=== PATIENT | male | born 1985 | race Caucasian/White ===

== ENCOUNTER 2021-05-16 16:37 | Observation (INO) ==
--- NOTE | 2021-05-16 17:29 | DR.GENAD ---
HPI Time Seen Time Seen by Provider: 05/16/21 17:20 PCP Primary Care Physician: [email or web address] Complaint/Symptoms Chief Complaint:: PT C/O A FEW WEEKS WORTH OF SORES INTO LEFT LEG AND FOOT. PT IS NOTED TO HAVE SORE ON TOP OF THE LEFT FOOT JUST BELOW 5TH DIGIT AND JUST ABOVE THE FOOT ON THE FRONT OF THE LEFT LEG AND ON THE LEFT KNEE. AREAS ARE NOTED TO BE VERY RED AND LEFT FOOT IS SWOLLEN.PT C/O PAIN INTO THESE SORES. COVID-19 Coronavirus risk:travel/contact w/high risk person: No Has patient experienced Coronavirus symptoms: No Source History Provided: Patient Mode of Arrival Mode of Arrival: Ambulatory Timing Onset of Chief Complaint: 05/16/21 PMH PMH Past Medical History: No Past Surgical History: Yes Surgical History: Ortho Surgery Family History History of Family Medical Conditions: Yes Family Medical History: Diabetes Mellitus and Coronary Artery Disease Social History Does patient currently use any type of tobacco product: Yes Have you used tobacco products in the last 12 months: No Type of Tobacco Use: Cigarettes Does any household member use tobacco: No Alcohol Use: None Do you use any recreational Drugs:: No Lives With: Family Travel Risk Coronavirus risk:travel/contact w/high risk person: No Has patient experienced Coronavirus symptoms: No Infectious screening In the last 2 months have you had wt loss of >10#?: NO Have you had fever, night sweats or hemotysis?: No Have you traveled outside the country in the last 6 months?: No Isolation: Standard ROS Review of Systems Constitutional: No Symptoms Reported and See HPI Eyes: No Symptoms Reported and See HPI ENTM: No Symptoms Reported and See HPI Respiratoy: No Symptoms Reported and See HPI Cardiovascular: No Symptoms Reported and See HPI Gastrointestinal/Abdominal: No Symptoms Reported and See HPI Genitourinary: No Symptoms Reported and See HPI Neurological: No Symptoms Reported and See HPI Musculoskeletal: No Symptoms Reported and See HPI Integumentary: No Symptoms Reported and See HPI Hematologic/Lymphatic: No Symptoms Reported and See HPI Endocrine: No Symptoms Reported and See HPI Psychiatric: No Symptoms Reported and See HPI All Other Systems: Reviewed and Negative PE Vital Signs Vitals: Temperature 99.3 F Pulse Rate 93 Respiratory Rate 20 Blood Pressure 132/80 O2 Sat by Pulse Oximetry 97 General Limitations: No Limitations General Appearance: Alert and In No Apparent Distress Head Head Exam: Normal Inspection Eyes Eye exam: Normal Appearance ENT ENT Exam: Normal Exam External Ear Exam: Normal External Inspection TM/Canal Exam: Bilateral: Normal Nose Exam: Normal Nose Exam Mouth Exam: Normal Inspection Throat Exam: Normal Inspection Neck Neck Exam: Normal Inspection Chest Chest Inspection: Normal Inspection Respiratory Respiratory Exam: Normal Lung Sounds Bilat Respiratory Exam: Bilateral: Clear to Auscultation Cardiovascular Cardiovascular Exam: Regular Rate and Normal Rhythm Abdominal Exam Abdominal Exam: Normal Inspection, Normal Bowel Sounds and Soft Extremities Extremities Exam: Normal Inspection Back Back Exam: Normal Inspection Neurologic Neurological Exam: Alert and Oriented X3 Psychiatric Psychiatric Exam: Normal Affect and Normal Mood Skin Skin Exam: Warm, Dry, Intact and Normal Color ROR Labs Reviewed Result Diagrams: 05/16/21 17:36 05/16/21 17:36 Laboratory: 05/16/21 17:45 Knee - Left Wound Gram Stain - Final WBC 12.1 X10^3/uL (3.6-10.0) H 05/16/21 17:36 RBC 4.36 X10^6/uL (4.7-6.0) L 05/16/21 17:36 Hgb 13.8 g/dL (13.5-18.0) 05/16/21 17:36 Hct 40.1 % (42.0-54.0) L 05/16/21 17:36 MCV 92.0 fL (80.0-100.0) 05/16/21 17:36 MCH 31.6 pg (27.0-34.0) 05/16/21 17:36 MCHC 34.3 g/dL (33.0-35.0) 05/16/21 17:36 RDW 13.6 % (11.6-16.5) 05/16/21 17:36 Plt Count 192 X10^3/uL (150.0-450.0) 05/16/21 17:36 MPV 10.7 fL (7.4-11.0) 05/16/21 17:36 Neut % (Auto) 73.6 % (42.0-75.0) 05/16/21 17:36 Lymph % (Auto) 15.3 % (21.0-51.0) L 05/16/21 17:36 Levy % (Auto) 7.9 % (0.0-13.0) 05/16/21 17:36 Eos % (Auto) 2.1 % (0.9-2.9) 05/16/21 17:36 Baso % (Auto) 1.1 % (0.2-1.0) H 05/16/21 17:36 Neut # (Auto) 8.9 x10^3/uL (2.2-4.8) H 05/16/21 17:36 Lymph # (Auto) 1.8 X10^3/uL (1.3-2.9) 05/16/21 17:36 Levy # (Auto) 1.0 x10^3/uL (0.3-0.8) H 05/16/21 17:36 Eos # (Auto) 0.2 x10^3/uL (0.0-0.2) 05/16/21 17:36 Baso # (Auto) 0.1 X10^3/uL (0.0-0.1) 05/16/21 17:36 Absolute Nucleated RBC 0.0 /100WBC 05/16/21 17:36 Sodium 145 mmol/L (136-145) 05/16/21 17:36 Corrected Sodium 145 mmol/L (136-145) 05/16/21 17:36 Potassium 3.9 mmol/L (3.5-5.1) 05/16/21 17:36 Chloride 107 mmol/L (98-107) 05/16/21 17:36 Carbon Dioxide 30.4 mmol/L (21-32) 05/16/21 17:36 BUN 7 mg/dL (7-18) 05/16/21 17:36 Creatinine 1.24 mg/dL (0.70-1.30) 05/16/21 17:36 Est GFR (MDRD) Af Amer > 60 (>60) 05/16/21 17:36 Est GFR (MDRD) Non-Af > 60 (>60) 05/16/21 17:36 Glucose 112 mg/dL (65-99) H 05/16/21 17:36 Calcium 8.5 mg/dL (8.5-10.1) 05/16/21 17:36 Corrected Calcium TNP 05/16/21 17:36 Total Bilirubin 0.20 mg/dL (0.2-1.0) 05/16/21 17:36 AST 11 Units/L (15-37) L 05/16/21 17:36 ALT 18 Units/L (12-78) 05/16/21 17:36 Alkaline Phosphatase 80 Units/L (46-116) 05/16/21 17:36 Total Protein 6.9 g/dL (6.4-8.2) 05/16/21 17:36 Albumin 3.4 g/dL (3.4-5.0) 05/16/21 17:36 Globulin 3.5 g/dL (2.5-4.5) 05/16/21 17:36 Albumin/Globulin Ratio 1.0 Ratio (1.1-2.1) L 05/16/21 17:36 Opioid Opioid Risk Tool Age (Fadi box if 16-45): No History of Preadolescent Sexual Abuse: No Total: 0 Total Score Risk Category: Low Risk Copyright: Ravindra MANE predicting aberrant behaviors Diagnosis Discharge Problem: Cellulitis and abscess of left lower extremity, Puncture wound of left lower extremity Instructions Forms: Precautions for COVID19 Patient Portal Social Distancing
[2021-05-16 18:20] LABS: BASOPHILS # (AUTO) 0.1 X10^3/uL (0.0-0.1); BASOPHILS % (AUTO) 1.1 % (0.2-1.0); EOSINOPHILS # (AUTO) 0.2 x10^3/uL (0.0-0.2); EOSINOPHILS % (AUTO) 2.1 % (0.9-2.9); HEMATOCRIT 40.1 % (42.0-54.0); HEMOGLOBIN 13.8 g/dL (13.5-18.0); LYMPHOCYTES # (AUTO) 1.8 X10^3/uL (1.3-2.9); LYMPHOCYTES % (AUTO) 15.3 % (21.0-51.0); MEAN CORPUSCULAR HEMOGLOBIN 31.6 pg (27.0-34.0); MEAN CORPUSCULAR HGB CONC 34.3 g/dL (33.0-35.0); MEAN PLATELET VOLUME 10.7 fL (7.4-11.0); MONOCYTES % (AUTO) 7.9 % (0.0-13.0); NEUTROPHILS # (AUTO) 8.9 x10^3/uL (2.2-4.8); NEUTROPHILS % (AUTO) 73.6 % (42.0-75.0); PLATELET COUNT 192 X10^3/uL (150.0-450.0); RED BLOOD COUNT 4.36 X10^6/uL (4.7-6.0); RED CELL DISTRIBUTION WIDTH 13.6 % (11.6-16.5); WHITE BLOOD COUNT 12.1 X10^3/uL (3.6-10.0)
[2021-05-16] MEDS ORDERED: TORADOL 30 MG VIAL IVP ONE (19:12)
[2021-05-16] MEDS ORDERED: TORADOL 30 MG VIAL ONE (19:24)
[2021-05-16] MEDS ORDERED: NS 1000 ML 1,000 ML ONE (19:24)
[2021-05-16 19:37] LABS: ALANINE AMINOTRANSFERASE 18 Units/L (12-78); ALBUMIN 3.4 g/dL (3.4-5.0); ALKALINE PHOSPHATASE 80 Units/L (46-116); ASPARTATE AMINO TRANSFERASE 11 Units/L (15-37); BLOOD UREA NITROGEN 7 mg/dL (7-18); CALCIUM 8.5 mg/dL (8.5-10.1); CARBON DIOXIDE 30.4 mmol/L (21-32); CHLORIDE 107 mmol/L (98-107); COR NA(FOR HYPERGLY) 145 mmol/L (136-145); CREATININE 1.24 mg/dL (0.70-1.30); SODIUM 145 mmol/L (136-145); TOTAL PROTEIN 6.9 g/dL (6.4-8.2); eGFR NON BLACK RACES > 60 (>60)
[2021-05-16] MEDS: NS 1000 ML 1,000 ML IV SCH (19:40)
[2021-05-16] MEDS ORDERED: CLEOCIN 600 MG IV PREMIX 600 MG/50 ML BAG IV ONE ×2 (20:25→20:45)
[2021-05-16] MEDS ORDERED: ZOFRAN TAB 4 MG PO PRN (21:50)
[2021-05-16] MEDS ORDERED: MOTRIN TAB 600 MG PO PRN (21:50)
[2021-05-16] MEDS ORDERED: ROCEPHIN VIAL 1 GRAM 1 G in NS 100 ML IV + SPIKE MINIBAG* 100 ML IV SCH (22:00)
[2021-05-16] MEDS: VIBRAMYCIN 100 MG in D5W 250 ML IV 250 ML IV SCH (23:01)
[2021-05-16 23:08] VITALS: BMI 32.1
[2021-05-16] MEDS: TORADOL 30 MG VIAL IVP PRN (23:30)
[2021-05-17] MEDS: NS 1000 ML 1,000 ML IV SCH (03:56)
[2021-05-17 05:23] LABS: BASOPHILS # (AUTO) 0.1 X10^3/uL (0.0-0.1); BASOPHILS % (AUTO) 1.1 % (0.2-1.0); EOSINOPHILS # (AUTO) 0.3 x10^3/uL (0.0-0.2); EOSINOPHILS % (AUTO) 2.8 % (0.9-2.9); HEMATOCRIT 37.6 % (42.0-54.0); HEMOGLOBIN 13.2 g/dL (13.5-18.0); LYMPHOCYTES # (AUTO) 1.8 X10^3/uL (1.3-2.9); LYMPHOCYTES % (AUTO) 19.2 % (21.0-51.0); MEAN CORPUSCULAR HEMOGLOBIN 31.9 pg (27.0-34.0); MEAN CORPUSCULAR HGB CONC 35.1 g/dL (33.0-35.0); MEAN CORPUSCULAR VOLUME 90.8 fL (80.0-100.0); MEAN PLATELET VOLUME 10.6 fL (7.4-11.0); MONOCYTES # (AUTO) 0.9 x10^3/uL (0.3-0.8); MONOCYTES % (AUTO) 9.1 % (0.0-13.0); NEUTROPHILS # (AUTO) 6.5 x10^3/uL (2.2-4.8); NEUTROPHILS % (AUTO) 67.8 % (42.0-75.0); PLATELET COUNT 163 X10^3/uL (150.0-450.0); RED BLOOD COUNT 4.14 X10^6/uL (4.7-6.0); RED CELL DISTRIBUTION WIDTH 13.3 % (11.6-16.5); WHITE BLOOD COUNT 9.6 X10^3/uL (3.6-10.0)
[2021-05-17 05:34] LABS: ALANINE AMINOTRANSFERASE 22 Units/L (12-78); ALBUMIN 2.9 g/dL (3.4-5.0); ALKALINE PHOSPHATASE 68 Units/L (46-116); ASPARTATE AMINO TRANSFERASE 13 Units/L (15-37); BLOOD UREA NITROGEN 4 mg/dL (7-18); CALCIUM 7.8 mg/dL (8.5-10.1); CARBON DIOXIDE 27.4 mmol/L (21-32); CHLORIDE 108 mmol/L (98-107); COR CA(FOR HYPOALB) 8.7 mg/dL (8.5-10.1); COR NA(FOR HYPERGLY) 143 mmol/L (136-145); SODIUM 143 mmol/L (136-145); TOTAL PROTEIN 6.1 g/dL (6.4-8.2); eGFR NON BLACK RACES > 60 (>60)
[2021-05-17] MEDS: TORADOL 30 MG VIAL IVP PRN ×2 (06:20→12:25)
[2021-05-17] MEDS: VIBRAMYCIN 100 MG in D5W 250 ML IV 250 ML IV SCH (09:50)
--- NOTE | 2021-05-17 10:02 | DR.CARTERS ---
Short Stay Summary - Admission Date Date of Admission: 05/16/21 - Discharge Date Discharge Date: 05/17/21 - Admission Diagnoses (1) Cellulitis and abscess of left lower extremity Status: Acute (2) Puncture wound of left lower extremity Status: Acute - Hospital Course Hospital Course: IS A 36 YEAR OLD WHITE MALE WHO PRESENTED TO THE ER YESTERDAY WITH COMPLAINTS OF OPEN WOUNDS TO THE LEFT LOWER LEG AND FOOT. HE WAS ALSO NOTED TO HAVE REDNESS AND SWELLING TO THE FOOT AND LOWER LEG. PATIENT REPORTED THAT WOUNDS HAD BEEN PRESENT FOR THE PAST TWO WEEKS. 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 HE ADMITTED TO THROBBING PAIN. PAIN WAS RATED A 6/10 ON ARRIVAL TO THE ER. HIS PMH INCLUDES: HEARING LOSS, TBI, GERD, HERNIA, DDD, PTSD. ON EXAMINATION, THERE WAS NOTED TO BE A (0.5X0.5) HEALING WOUND TO THE LEFT UPPER FOOT. AREA SCABBED OVER. AREA SURROUNDING WOUND IS DRY AND SCALY. THERE IS A (1.2X1.5) ABRASION TYPE WOUND TO THE LEFT LATERAL ANKLE. AT THE BASE OF THE LEFT PINKY TOE, THERE IS A SCABBED OVER WOUND. THERE WAS 3+ PITTING EDEMA AND ER YTHEMA. SKIN WAS HOT TO TOUCH. ON ARRIVAL, VITALS WERE 99.3-93-20-97%-132/80. LABS WERE OBTAINED. ABNORMAL LAB VALUES INCLUDED THE FOLLOWING: WBC 12.1, RBC 4.36, HCT 40.1, GLUCOSE 112, AST 11. COVID-19 NEGATIVE. WOUND AND BLOOD CULTURES WERE SET UP. IN THE ER, HE WAS GIVEN TORADOL 30MG IV X 1 DOSE AND CLEOCIN 600MG IV X 1 DOSE. HE WAS ADMITTED TO THE HOSPITAL FOR FURTHER EVALUATION AND TREATMENT OF LLE CELLULITIS, LLE PUNCTURE WOUNDS. HE WAS STARTED ON NORMAL SALINE AT 125 ML/HR, ROCEPHIN 1G IV HS, DOXYCYCLINE 100MG IV Q12H, TORADOL 30MG IV Q6H PRN, AND ZOFRAN 4MG PO Q8H PRN. - Discharge Medications Discharge Medications: Home Medication List NK 05/16/21 [History] amoxicillin-pot clavulanate [Augmentin] 1 tab PO BID #28 tab 05/17/21 [Rx] gentamicin 1 applic TOPICAL TID #1 g 05/17/21 [Rx] methylprednisolone [Medrol (Kashif)] See Rx Instructions .ROUTE .COMPLEX #1 ea 05/17/21 [Rx] Prescriptions: amoxicillin-pot clavulanate [Augmentin] ZaySatya gentamicin Zay,Satya Vaibhav methylprednisolone [Medrol (Kashif)] ZaySatya - Discharge Plan Disposition: HOME, SELF-CARE Condition: Stable Prescriptions: amoxicillin-pot clavulanate [Augmentin] 1 tab PO BID #28 tab gentamicin 1 applic TOPICAL TID #1 g methylprednisolone [Medrol (Kashif)] See Rx Instructions .ROUTE .COMPLEX #1 ea - Follow up/Referrals Follow up/Referrals: NFD,None [Primary Care Provider] - 2 WEEKS - Instructions Additional Instructions: DIET TOLERATED. ACTIVITY TOLERATED. Forms: Excuse From Work or School, Precautions for COVID19, Patient Portal, Social Distancing
[2021-05-17 13:54] VITALS: BP 141/84
== END 2021-05-17 12:53 | disposition home or self-care (01) ==
LOC: EDSEX → ER 16:41 → MED/SURG 16:41
PROVIDERS: ADMIT Internal Medicine; ATTEND Internal Medicine
DX: X58.XXXA Exposure to other specified factors, initial encounter; L03.116 Cellulitis of left lower limb; Y92.9 Unspecified place or not applicable; L02.416 Cutaneous abscess of left lower limb; S91.332A Puncture wound without foreign body, left foot, initial encounter; B95.61 Methicillin susceptible Staphylococcus aureus infection as the cause of diseases classified elsewhere; Z20.822 Contact with and (suspected) exposure to COVID-19; K21.9 Gastro-esophageal reflux disease without esophagitis; R60.0 Localized edema